=== PATIENT | male | born 1980 ===

== ENCOUNTER 2020-08-21 22:59 | Observation (INO) | payer SELFPAY ==
[~2020-08-21] VITALS: Ht 167.6 cm; Wt 73.6 kg
[2020-08-21 23:44] LABS: CALC OSMOLALITY 289 mosm/kg (275-300); CALCIUM 8.1 mg/dL (8.5-10.1); CARBON DIOXIDE 24.8 mmol/L (21.0-32.0); CHLORIDE - SERUM 109 mmol/L (98-107); CREATININE - SERUM 0.6 mg/dL (0.6-1.3); GLUCOSE 128 mg/dL (74-106); POTASSIUM - SERUM 3.6 mmol/L (3.5-5.1); SODIUM 146 mmol/L (136-145); UREA NITROGEN 4 mg/dL (7-18); eGFR NON AFRICAN AMERICAN > 90 mL/min (90-120)
[2020-08-21 23:51] LABS: WBC 3.8 10x3/uL (4.8-10.8)
[2020-08-21 23:52] LABS: HEMATOCRIT 35.1 % (42.0-54.0); HEMOGLOBIN 12.4 g/dL (13.5-17.5); LYMPHOCYTES 26.3 % (15-50); MCH 37.3 pg (26.0-34.0); MCHC 35.3 g/dL (31.0-37.0); MCV 105.7 fL (80.0-100.0); MEAN PLATELET VOLUME 9.9 fL (7.4-10.4); NEUTROPHILS 54.5 % (40-80); RBC 3.32 10x6/uL (4.20-6.10); RDW 13.1 % (11.5-14.5)
[2020-08-22] VITALS (8 sets, daily range): BP systolic 110–125; BP diastolic 64–76
[2020-08-22 00:06] LABS: ALKALINE PHOSPHATASE 234 U/L (30-120); ALT (SGPT) 51 U/L (10-68); BILIRUBIN - TOTAL 1.89 mg/dL (0.2-1.3); LIPASE 414 U/L (73-393); PROTEIN - SERUM 8.4 g/dL (6.4-8.2)
[2020-08-22 00:10] LABS: PLATELET COUNT 40 10x3/uL (130-400)
[2020-08-22 00:19] LABS: CREATINE KINASE 1150 UL (21-232)
[2020-08-22 00:20] LABS: CKMB 4.9 U/L (0.0-3.6)
[2020-08-22 07:16] LABS: INR 1.19 (0.85-1.17)
[2020-08-22 07:17] LABS: APTT 35.3 SECONDS (22.8-39.4)
[2020-08-22 07:34] LABS: ALKALINE PHOSPHATASE 223 U/L (30-120); ALT (SGPT) 43 U/L (10-68); AMYLASE - SERUM 109 U/L (25-115); BILIRUBIN - TOTAL 1.33 mg/dL (0.2-1.3); CHLORIDE - SERUM 113 mmol/L (98-107); CKMB 4.9 U/L (0.0-3.6); HDL CHOLESTEROL 50 mg/dL (32-96); PHOSPHOROUS 3.5 mg/dL (2.5-4.9); POTASSIUM - SERUM 3.3 mmol/L (3.5-5.1); PRO BNP 21 pg/mL (0-125); SODIUM 148 mmol/L (136-145); THYROID STIMULATING HORMONE 0.87 uIU/mL (0.36-3.74); TRIGLYCERIDE 275 mg/dL (30-200); TROPONIN-I 0.021 ng/mL (0.000-0.060)
[2020-08-22 07:48] LABS: ALBUMIN 2.6 g/dL (3.4-5.0); CALC OSMOLALITY 290 mosm/kg (275-300); CALCIUM 7.2 mg/dL (8.5-10.1); CHOL - HDL RATIO 5.3 ratio (2.3-4.9); CHOLESTEROL, TOTAL 266 mg/dL (0-200); GLUCOSE 101 mg/dL (74-106); LDL CHOLESTEROL 161 mg/dL (0-100); LDL-HDL RATIO 3.2 ratio (1.5-3.5); MAGNESIUM - SERUM 1.8 mg/dL (1.8-2.4); UREA NITROGEN 4 mg/dL (7-18)
[2020-08-22 07:49] LABS: CREATINE KINASE 909 UL (21-232); CREATININE - SERUM 0.4 mg/dL (0.6-1.3); LIPASE 250 U/L (73-393); eGFR NON AFRICAN AMERICAN > 90 mL/min (90-120)
--- NOTE | 2020-08-22 09:00 | NUR ---
AWAKE AND ALERT. NO ACUTE DISTRESS. UNDERSTANDING VERBALIZED REGARDING ADMISSION.
--- NOTE | 2020-08-22 10:50 | NUR ---
AWAKE AND ALERT. NO ACUTE DISTRESS. UP TO BATHROOM WITHOUT DIFF.
--- NOTE | 2020-08-22 15:13 | NUR ---
AWAKE AND ALERT. NO ACUTE DISTRESS. MEDS TAKEN WITHOUT DIFF. REPOSITIONED SELF IN BED.
--- NOTE | 2020-08-22 18:30 | NUR ---
NO ACUTED DISTRESS NOTED. NO C/O. AWAKE AND ALERT.
--- NOTE | 2020-08-22 19:10 | NUR ---
REPORT TO ANDREAS YUNG.
[2020-08-23] VITALS: BP 109/64
[2020-08-23 02:32] VITALS: BP 117/71
[2020-08-23 04:02] VITALS: BP 109/67
[2020-08-23 05:13] LABS: HEMOGLOBIN 11.5 g/dL (13.5-17.5); MCH 35.9 pg (26.0-34.0); MCHC 33.8 g/dL (31.0-37.0); MCV 106.3 fL (80.0-100.0); MEAN PLATELET VOLUME 9.3 fL (7.4-10.4); RDW 13.4 % (11.5-14.5)
[2020-08-23 05:44] LABS: CALC OSMOLALITY 277 mosm/kg (275-300); CALCIUM 7.2 mg/dL (8.5-10.1); CARBON DIOXIDE 24.7 mmol/L (21.0-32.0); CHLORIDE - SERUM 107 mmol/L (98-107); GLUCOSE 90 mg/dL (74-106); POTASSIUM - SERUM 3.5 mmol/L (3.5-5.1); SODIUM 141 mmol/L (136-145); UREA NITROGEN 3 mg/dL (7-18)
[2020-08-23 05:51] LABS: CREATININE - SERUM 0.6 mg/dL (0.6-1.3); eGFR NON AFRICAN AMERICAN > 90 mL/min (90-120)
[2020-08-23 06:11] LABS: WBC 2.8 10x3/uL (4.8-10.8)
[2020-08-23 06:12] LABS: PLATELET COUNT 32 10x3/uL (130-400)
--- NOTE | 2020-08-23 06:14 | NUR ---
PLATELET 32.LATESHA HARDIN NOTIFIED. CONSULT CALLED TO DR LEAL PAGER
[2020-08-23 07:00] VITALS: BP 114/68
[2020-08-23 08:35] LABS: CKMB 3.6 U/L (0.0-3.6)
[2020-08-23 08:52] LABS: CREATINE KINASE 805 UL (21-232)
--- NOTE | 2020-08-23 09:21 | NUR ---
DR THOMAS NOTIFIED OF CONSULT AND IN ROOM WITH PATIENT
[2020-08-23 10:00] LABS: EOSINOPHILS 2 % (0-7); LYMPHOCYTES 28 % (15-50); MONOCYTES 14 % (2-11); NEUTROPHILS 55 % (40-80); PLATELET ESTIMATE DECREASED; ROULEAUX OCC
[2020-08-23 13:29] VITALS: BP 140/70; Ht 167.6 cm; Wt 73.6 kg
--- NOTE | 2020-08-23 13:39 | NUR ---
PATIENT TO ROOM VIA WHEELCHAIR. DENIES PAIN OR NEEDS AT THIS TIME. IV INFUSING PER MAR. EATING LUNCH. BED LOW POSITION, CALL LIGHT IN REACH. FREE FROM SIGNS OF DISTRESS. WILL CONTINUE TO MONITOR.
[2020-08-23] MEDS ORDERED: AUGMENTIN 875-11 TAB PO ×2 (14:36→16:32)
--- NOTE | 2020-08-23 17:36 | NUR ---
DISCHARGE TEACHING COMPLETE. NO FURTHER QUESTIONS. IV CATH REMOVED, CATH TIP INTACT. BELONGINGS GATHERED. WAITING ON RIDE TO GET HERE.
--- NOTE | 2020-08-23 18:17 | NUR ---
PATIENT LEFT UNIT VIA WHEELCHAIR TO HOME.
== END 2020-08-23 18:00 | disposition home or self-care (01) ==
LOC: D.ER 22:59 → OBSVTIME 08-22 00:45 → D.MS 08-22 00:45 → D.EDHOLD 08-22 00:45 → D.MS 08-23 13:06
PROVIDERS: Emergency Medicine; Family Medicine; ADMIT Family Medicine; ATTEND Family Medicine
DX: F10.129 Alcohol abuse with intoxication, unspecified (principal); G93.41 Metabolic encephalopathy; S02.2XXA Fracture of nasal bones, initial encounter for closed fracture; M62.82 Rhabdomyolysis; D53.9 Nutritional anemia, unspecified; W19.XXXA Unspecified fall, initial encounter; Y93.9 Activity, unspecified; Y92.9 Unspecified place or not applicable; Y90.8 Blood alcohol level of 240 mg/100 ml or more; R79.89 Other specified abnormal findings of blood chemistry; R74.01 Elevation of levels of liver transaminase levels; D61.818 Other pancytopenia